=== PATIENT | female | born 1955 | race Two or more races ===

== ENCOUNTER 2022-09-10 22:34 | Emergency (ER) | payer OTHER ==
[~2022-09-10] VITALS: Ht 165.1 cm; Wt 63.5 kg
[2022-09-10] MEDS ORDERED: CITALOPRAM20 MG/10 M PO (23:28)
[2022-09-10] MEDS ORDERED: SYNTHROID75 MCG PO (23:28)
== END 2022-09-11 05:29 | disposition home or self-care (01) ==
LOC: ER 22:34
DX: R55 Syncope and collapse (principal); F10.129 Alcohol abuse with intoxication, unspecified; Z88.0 Allergy status to penicillin; Z88.6 Allergy status to analgesic agent; E03.9 Hypothyroidism, unspecified; Z20.822 Contact with and (suspected) exposure to COVID-19